=== PATIENT | female | born 1945 | race Caucasian/White ===

== ENCOUNTER → 2017-05-13 | Outpatient (CLI) | payer MEDICARE ==
[~2017-05-13] MED LIST: ALBU0.63 NEB; ALBU8.5H5 INH; ALPR0.254 PO; AMLO10TA2 PO; ASPI-621 PO; ATOR10TA PO; DABI150C PO; DRON400T PO; ESTR1TAB15 PO; FLUT1DIS3 INH; HYDR-3240 PO; LORA-445 PO; LORA10TA75 PO; LOSA100T6 PO; PRED10TA PO; SULF1TAB24 PO; TIOT18CA INH
== END | disposition home or self-care (01) ==
LOC: CFH 12:33
PROVIDERS: ATTEND Internal Medicine
DX: R05 Cough (principal)
CPT/HCPCS: 71046

== ENCOUNTER 2018-06-28 16:55 | Inpatient (IN) | payer MEDICARE ==
[~2018-06-28] VITALS: Ht 162.6 cm; Wt 74.0 kg
[~2018-06-28 16:55] MED LIST changes: -AMLO10TA2 PO; +AMLO10TA8 PO; -ASPI-621 PO; +ASPI81TA45 PO; +LOSA100T14 PO; -LOSA100T6 PO
[2018-06-28] MEDS ORDERED: methylPREDNISolone SOD SUCC 125 MG/2 ML ONE (17:26)
[2018-06-28] MEDS ORDERED: SODIUM CHLORIDE FLUSH 10ML SYR IVF ONE (17:30)
[2018-06-28] MEDS ORDERED: methylPREDNISolone SOD SUCC 125 MG/2 ML IVP ONE (17:30)
[2018-06-28 17:51] LABS: BASOPHILS # (AUTO) 0.03 x10^3/uL (0-0.1); BASOPHILS % (AUTO) 1 % (0-1); EOSINOPHILS # (AUTO) 0.13 x10^3/uL (0-0.4); EOSINOPHILS % (AUTO) 2 % (1-7); LYMPHOCYTES # (AUTO) 0.96 x10^3/uL (1-3.4); LYMPHOCYTES % (AUTO) 17 % (22-44); MD NO; MEAN CORPUSCULAR HEMOGLOBIN 31.4 pg (27.0-34.8); MEAN CORPUSCULAR HGB CONC 34.3 g/dL (32.4-35.8); MEAN CORPUSCULAR VOLUME 91.7 fL (80-100); MEAN PLATELET VOLUME 8.1 fL (7.4-10.4); MONOCYTES # (AUTO) 0.46 x10^3/uL (0.2-0.8); MONOCYTES % (AUTO) 8 % (2-9); NEUTROPHILS # (AUTO) 3.96 x10^3/uL (1.8-6.8); NEUTROPHILS % (AUTO) 71 % (42-75); PLATELET COUNT 233 x10^3/uL (130-400); RED BLOOD COUNT 3.94 x10^6/uL (3.82-5.3); RED CELL DISTRIBUTION WIDTH 13.5 % (9.6-15.2)
[2018-06-28] MEDS ORDERED: APIX5TAB PO (17:57)
[2018-06-28] MEDS ORDERED: LOSA1TAB25 PO (17:57)
[2018-06-28 18:02] LABS: ALBUMIN 3.3 g/dL (3.4-5.0); ANION GAP 9 mmol/L (5-15); CALCIUM 7.9 mg/dL (8.5-10.1); CHLORIDE 98 mmol/L (98-107); CREATININE 1.39 mg/dL (0.55-1.02)
--- NOTE | 2018-06-28 18:52 | NUR ---
REPORT OF PT FROM TORI CUNHA. ASSUMING CARE OF PT AT THIS TIME.
[2018-06-28] MEDS ORDERED: ALBUTEROL/IPRATROPIUM 2.5MG/0.5MG, 3 ML NPPB ONE (19:00)
[2018-06-28] MEDS: NS + 20MEQ KCL 1,000 ML IV SCH (19:09)
[2018-06-28] MEDS ORDERED: ALBUTEROL/IPRATROPIUM 2.5MG/0.5MG, 3 ML ONE (19:14)
[2018-06-28] MEDS ORDERED: NS + 20MEQ KCL 1,000 ML IV ONE (19:22)
--- NOTE | 2018-06-28 19:28 | NUR ---
REPORT OF PT TO TORI SUAREZ. ALL QUESTIONS ANSWERED
[2018-06-28] MEDS ORDERED: POLYETHYLENE GLYCOL 17 GM PACKET PO PRN (19:30)
[2018-06-28] MEDS ORDERED: ONDANSETRON ODT 4 MG PO PRN (19:30)
[2018-06-28] MEDS ORDERED: BISACODYL 10 MG SUPP PR PRN (19:30)
[2018-06-28] MEDS ORDERED: GUAIFENESIN/DM 200-20MG, 10ML UDC PO PRN (19:30)
[2018-06-28] MEDS ORDERED: SODIUM CHLORIDE FLUSH 10ML SYR IVF PRN (19:30)
--- NOTE | 2018-06-28 19:37 | NUR ---
IV FLUIDS INITIATED PER MAY. PT IS HEADED TO FLOOR VIA [facility] WITH CORRECTIONAL PROGRAM SPECIALIST AT THIS TIME. FAMILY AT [facility] DURING TRANSPORT.
[2018-06-28 20:21] VITALS: BP 152/76
[2018-06-28] MEDS: BUDESONIDE 0.5 MG/2 ML INHA HHN SCH (21:00)
[2018-06-28] MEDS ORDERED: ALBUTEROL SULFATE 2.5 MG/3 ML HHN SCH (21:00)
[2018-06-28] MEDS: ATORVASTATIN 10 MG TABLET PO SCH (21:19)
[2018-06-28] MEDS: APIXABAN 5 MG TABLET PO SCH (21:19)
[2018-06-28] MEDS: LORazepam 0.5MG TABLET PO PRN (21:19)
[2018-06-28] MEDS: DRONEDARONE 400MG TABLET PO SCH (21:20)
[2018-06-28] MEDS: methylPREDNISolone SOD SUCC 125 MG/2 ML IVPush SCH (23:36)
[2018-06-29 02:12] VITALS: BP 126/67
[2018-06-29] MEDS: ALBUTEROL/IPRATROPIUM 2.5MG/0.5MG, 3 ML NPPB SCH ×4 (03:00→20:09)
[2018-06-29] MEDS: methylPREDNISolone SOD SUCC 125 MG/2 ML IVPush SCH ×2 (05:58→12:05)
[2018-06-29] MEDS: NS + 20MEQ KCL 1,000 ML IV SCH ×2 (06:10→16:57)
[2018-06-29 06:39] LABS: ALBUMIN 3.1 g/dL (3.4-5.0); CHLORIDE 98 mmol/L (98-107)
[2018-06-29 06:46] LABS: ALANINE AMINOTRANSFERASE 22 U/L (12-78); ALKALINE PHOSPHATASE 60 U/L (45-117); ANION GAP 9 mmol/L (5-15); BILIRUBIN,TOTAL 0.3 mg/dL (0.2-1.0); CALCIUM 7.6 mg/dL (8.5-10.1); CREATININE 1.35 mg/dL (0.55-1.02); TOTAL PROTEIN 6.1 g/dL (6.4-8.2)
[2018-06-29 06:47] LABS: MEAN CORPUSCULAR HEMOGLOBIN 31.5 pg (27.0-34.8); MEAN CORPUSCULAR VOLUME 90.2 fL (80-100); MEAN PLATELET VOLUME 8.6 fL (7.4-10.4); PLATELET COUNT 226 x10^3/uL (130-400); RED CELL DISTRIBUTION WIDTH 13.5 % (9.6-15.2)
[2018-06-29 07:09] LABS: BASOPHILS % (AUTO) 0 % (0-1); EOSINOPHILS % (AUTO) 0 % (1-7); LYMPHOCYTES # (AUTO) 0.35 x10^3/uL (1-3.4); LYMPHOCYTES % (AUTO) 12 % (22-44); MD SCAN; MONOCYTES # (AUTO) 0.02 x10^3/uL (0.2-0.8); MONOCYTES % (AUTO) 1 % (2-9); NEUTROPHILS # (AUTO) 2.71 x10^3/uL (1.8-6.8); NEUTROPHILS % (AUTO) 88 % (42-75)
[2018-06-29 07:24] VITALS: BP 118/67
[2018-06-29] MEDS ORDERED: IPRATROPIUM 0.5 MG/2.5 ML INHA HHN SCH (09:00)
[2018-06-29] MEDS ORDERED: HYDROCHLOROTHIAZIDE 12.5 MG CAPSULE PO SCH (09:00)
[2018-06-29] MEDS: SENNA/DOCUSATE TABLET PO SCH (09:00)
[2018-06-29] MEDS: LOSARTAN 50MG TABLET PO SCH (09:28)
[2018-06-29] MEDS: ESTRADIOL 1 MG TABLET PO SCH (09:28)
[2018-06-29] MEDS: DRONEDARONE 400MG TABLET PO SCH ×2 (09:29→16:56)
[2018-06-29] MEDS: AMLODIPINE 10 MG TAB PO SCH (09:29)
[2018-06-29] MEDS: APIXABAN 5 MG TABLET PO SCH ×2 (09:29→21:12)
[2018-06-29] MEDS: LORazepam 0.5MG TABLET PO PRN ×2 (09:37→20:02)
[2018-06-29] MEDS: BUDESONIDE 0.5 MG/2 ML INHA HHN SCH ×2 (10:00→20:09)
[2018-06-29 13:01] VITALS: BP 112/61
[2018-06-29 14:55] LABS: HEMOGLOBIN A1C 5.7 % (4.2-6.3)
[2018-06-29 20:08] VITALS: BP 148/75
[2018-06-29] MEDS: DOXYCYCLINE 100MG TABLET PO SCH (21:11)
[2018-06-29] MEDS: ATORVASTATIN 10 MG TABLET PO SCH (21:12)
[2018-06-29] MEDS: GUAIFENESIN ER 600 MG TABLET PO SCH (21:12)
[2018-06-29] MEDS ORDERED: methylPREDNISolone SOD SUCC 125 MG/2 ML IVPush SCH (23:30)
[2018-06-30 01:30] VITALS: BP 114/65
[2018-06-30] MEDS: ALBUTEROL/IPRATROPIUM 2.5MG/0.5MG, 3 ML NPPB SCH ×4 (02:48→20:24)
[2018-06-30] MEDS: NS + 20MEQ KCL 1,000 ML IV SCH (05:50)
[2018-06-30 05:59] LABS: ANION GAP 7 mmol/L (5-15); CALCIUM 7.5 mg/dL (8.5-10.1); CHLORIDE 101 mmol/L (98-107); CREATININE 1.17 mg/dL (0.55-1.02)
[2018-06-30 06:21] LABS: MEAN CORPUSCULAR HEMOGLOBIN 31.5 pg (27.0-34.8); MEAN CORPUSCULAR HGB CONC 34.3 g/dL (32.4-35.8); MEAN CORPUSCULAR VOLUME 91.9 fL (80-100); MEAN PLATELET VOLUME 8.7 fL (7.4-10.4); PLATELET COUNT 211 x10^3/uL (130-400); RED BLOOD COUNT 3.57 x10^6/uL (3.82-5.3); RED CELL DISTRIBUTION WIDTH 13.4 % (9.6-15.2)
[2018-06-30 06:48] LABS: BASOPHILS % (AUTO) 0 % (0-1); EOSINOPHILS # (AUTO) 0.14 x10^3/uL (0-0.4); EOSINOPHILS % (AUTO) 2 % (1-7); LYMPHOCYTES # (AUTO) 0.26 x10^3/uL (1-3.4); LYMPHOCYTES % (AUTO) 4 % (22-44); MD SCAN; MONOCYTES # (AUTO) 0.13 x10^3/uL (0.2-0.8); MONOCYTES % (AUTO) 2 % (2-9); NEUTROPHILS # (AUTO) 6.57 x10^3/uL (1.8-6.8); NEUTROPHILS % (AUTO) 92 % (42-75)
[2018-06-30 07:32] VITALS: BP 123/70
[2018-06-30] MEDS: BUDESONIDE 0.5 MG/2 ML INHA HHN SCH ×2 (09:00→20:24)
[2018-06-30] MEDS: LORazepam 1MG TABLET PO PRN ×4 (09:03→21:06)
[2018-06-30] MEDS: SENNA/DOCUSATE TABLET PO SCH (09:04)
[2018-06-30] MEDS: AMLODIPINE 10 MG TAB PO SCH (09:04)
[2018-06-30] MEDS: LOSARTAN 50MG TABLET PO SCH (09:04)
[2018-06-30] MEDS: ESTRADIOL 1 MG TABLET PO SCH (09:04)
[2018-06-30] MEDS: DRONEDARONE 400MG TABLET PO SCH ×2 (09:04→17:09)
[2018-06-30] MEDS: GUAIFENESIN ER 600 MG TABLET PO SCH ×2 (09:05→21:06)
[2018-06-30] MEDS: APIXABAN 5 MG TABLET PO SCH ×2 (09:05→21:06)
[2018-06-30] MEDS: DOXYCYCLINE 100MG TABLET PO SCH ×2 (09:05→21:06)
[2018-06-30 12:49] VITALS: BP 133/74
[2018-06-30 19:10] VITALS: BP 115/67
[2018-06-30] MEDS: ATORVASTATIN 10 MG TABLET PO SCH (21:06)
[2018-06-30] MEDS ORDERED: SODIUM CHLORIDE NASAL SPRAY 45ML BOTTLE NAS PRN (22:00)
[2018-07-01 01:41] VITALS: BP 111/65
[2018-07-01] MEDS: ALBUTEROL/IPRATROPIUM 2.5MG/0.5MG, 3 ML NPPB SCH ×4 (02:30→19:44)
[2018-07-01 07:17] VITALS: BP 168/62
[2018-07-01] MEDS: BUDESONIDE 0.5 MG/2 ML INHA HHN SCH ×2 (08:15→19:44)
[2018-07-01] MEDS: SENNA/DOCUSATE TABLET PO SCH (09:00)
[2018-07-01] MEDS: GUAIFENESIN ER 600 MG TABLET PO SCH ×2 (09:15→20:59)
[2018-07-01] MEDS: APIXABAN 5 MG TABLET PO SCH ×2 (09:16→20:59)
[2018-07-01] MEDS: ESTRADIOL 1 MG TABLET PO SCH (09:16)
[2018-07-01] MEDS: AMLODIPINE 10 MG TAB PO SCH (09:16)
[2018-07-01] MEDS: DOXYCYCLINE 100MG TABLET PO SCH ×2 (09:16→20:59)
[2018-07-01] MEDS: LOSARTAN 50MG TABLET PO SCH (09:16)
[2018-07-01] MEDS: DRONEDARONE 400MG TABLET PO SCH ×2 (09:16→18:11)
[2018-07-01 14:59] VITALS: BP 117/67
[2018-07-01] MEDS: LORazepam 1MG TABLET PO PRN (18:19)
[2018-07-01 20:00] VITALS: BP 138/66
[2018-07-01] MEDS: ATORVASTATIN 10 MG TABLET PO SCH (20:59)
[2018-07-01] MEDS: ACETAMINOPHEN 325 MG TABLET PO PRN (21:10)
[2018-07-01] MEDS: HYDROcodone/APAP 5/325 TABLET PO PRN (22:39)
[2018-07-02 02:43] VITALS: BP 133/70
[2018-07-02] MEDS: ALBUTEROL/IPRATROPIUM 2.5MG/0.5MG, 3 ML NPPB SCH ×4 (03:00→22:00)
[2018-07-02 05:53] LABS: ANION GAP 7 mmol/L (5-15); CHLORIDE 99 mmol/L (98-107); CREATININE 1.17 mg/dL (0.55-1.02)
[2018-07-02] MEDS ORDERED: methylPREDNISolone SOD SUCC 125 MG/2 ML IVPush SCH (08:00)
[2018-07-02] MEDS: HYDROcodone/APAP 5/325 TABLET PO PRN ×2 (08:33→16:56)
[2018-07-02] MEDS: APIXABAN 5 MG TABLET PO SCH ×2 (08:33→20:19)
[2018-07-02] MEDS: SENNA/DOCUSATE TABLET PO SCH (08:33)
[2018-07-02] MEDS: DOXYCYCLINE 100MG TABLET PO SCH ×2 (08:33→20:20)
[2018-07-02] MEDS: GUAIFENESIN ER 600 MG TABLET PO SCH ×2 (08:34→20:19)
[2018-07-02] MEDS: DRONEDARONE 400MG TABLET PO SCH ×2 (08:34→16:56)
[2018-07-02] MEDS: ESTRADIOL 1 MG TABLET PO SCH (08:34)
[2018-07-02] MEDS: LOSARTAN 50MG TABLET PO SCH (08:37)
[2018-07-02] MEDS: AMLODIPINE 10 MG TAB PO SCH (08:37)
[2018-07-02 08:39] VITALS: BP 143/83
[2018-07-02] MEDS: BUDESONIDE 0.5 MG/2 ML INHA HHN SCH ×2 (09:00→21:00)
[2018-07-02] MEDS: LORazepam 1MG TABLET PO PRN ×2 (12:08→16:57)
[2018-07-02 14:24] VITALS: BP 116/61
[2018-07-02 18:45] VITALS: BP 98/56
[2018-07-02] MEDS: ATORVASTATIN 10 MG TABLET PO SCH (20:19)
[2018-07-03] MEDS: HYDROcodone/APAP 5/325 TABLET PO PRN ×4 (00:01→23:33)
[2018-07-03 00:25] LABS: MICROSCOPIC NOT IND
[2018-07-03 00:28] LABS: SODIUM,URINE RANDOM 10 mmol/L
[2018-07-03 00:51] LABS: OSMOLALITY,URINE 477 mOsm/kg (500-850)
[2018-07-03 02:32] VITALS: BP 152/86
[2018-07-03 06:24] LABS: ANION GAP 8 mmol/L (5-15); CALCIUM 7.8 mg/dL (8.5-10.1); CHLORIDE 95 mmol/L (98-107)
[2018-07-03 06:27] LABS: CREATININE 1.21 mg/dL (0.55-1.02)
[2018-07-03] MEDS ORDERED: SODIUM CHLORIDE 0.9%, 500ML IVBOLUS ONE (07:00)
[2018-07-03 07:30] VITALS: BP 146/85
[2018-07-03] MEDS: ALBUTEROL/IPRATROPIUM 2.5MG/0.5MG, 3 ML NPPB SCH ×6 (07:58→22:47)
[2018-07-03] MEDS: BUDESONIDE 0.5 MG/2 ML INHA HHN SCH ×2 (07:58→19:09)
[2018-07-03] MEDS: ESTRADIOL 1 MG TABLET PO SCH (08:11)
[2018-07-03] MEDS: GUAIFENESIN ER 600 MG TABLET PO SCH ×2 (08:11→21:02)
[2018-07-03] MEDS: APIXABAN 5 MG TABLET PO SCH ×2 (08:12→21:02)
[2018-07-03] MEDS: SENNA/DOCUSATE TABLET PO SCH (08:12)
[2018-07-03] MEDS: AMLODIPINE 10 MG TAB PO SCH (08:12)
[2018-07-03] MEDS: DRONEDARONE 400MG TABLET PO SCH ×2 (08:12→17:17)
[2018-07-03] MEDS: DOXYCYCLINE 100MG TABLET PO SCH ×2 (08:12→21:02)
[2018-07-03] MEDS: LORazepam 1MG TABLET PO PRN (10:52)
[2018-07-03 12:16] LABS: ALBUMIN 3.4 g/dL (3.4-5.0); ANION GAP 8 mmol/L (5-15); CALCIUM 8.2 mg/dL (8.5-10.1); CHLORIDE 98 mmol/L (98-107)
[2018-07-03] MEDS: ACETAMINOPHEN 325 MG TABLET PO PRN (13:12)
[2018-07-03 13:55] VITALS: BP 116/60
[2018-07-03] MEDS: SODIUM CHLORIDE 0.9% 1,000 ML IV SCH (17:17)
[2018-07-03 19:00] VITALS: BP 110/58
[2018-07-03] MEDS: ATORVASTATIN 10 MG TABLET PO SCH (21:02)
[2018-07-04 01:12] VITALS: BP 116/58
[2018-07-04] MEDS: SODIUM CHLORIDE 0.9% 1,000 ML IV SCH (04:59)
[2018-07-04 05:25] LABS: CHLORIDE 103 mmol/L (98-107)
[2018-07-04 05:26] LABS: BASOPHILS # (AUTO) 0.04 x10^3/uL (0-0.1); BASOPHILS % (AUTO) 0 % (0-1); EOSINOPHILS # (AUTO) 0.06 x10^3/uL (0-0.4); EOSINOPHILS % (AUTO) 1 % (1-7); LYMPHOCYTES # (AUTO) 2.53 x10^3/uL (1-3.4); LYMPHOCYTES % (AUTO) 21 % (22-44); MD NO; MEAN CORPUSCULAR HEMOGLOBIN 31.2 pg (27.0-34.8); MEAN CORPUSCULAR HGB CONC 33.8 g/dL (32.4-35.8); MEAN CORPUSCULAR VOLUME 92.2 fL (80-100); MEAN PLATELET VOLUME 8.2 fL (7.4-10.4); MONOCYTES # (AUTO) 1.01 x10^3/uL (0.2-0.8); MONOCYTES % (AUTO) 8 % (2-9); NEUTROPHILS # (AUTO) 8.63 x10^3/uL (1.8-6.8); NEUTROPHILS % (AUTO) 70 % (42-75); PLATELET COUNT 335 x10^3/uL (130-400); RED BLOOD COUNT 3.04 x10^6/uL (3.82-5.3); RED CELL DISTRIBUTION WIDTH 13.6 % (9.6-15.2)
[2018-07-04 05:31] LABS: ALANINE AMINOTRANSFERASE 25 U/L (12-78); ALBUMIN 3.2 g/dL (3.4-5.0); ALKALINE PHOSPHATASE 38 U/L (45-117); ANION GAP 7 mmol/L (5-15); BILIRUBIN,TOTAL 0.4 mg/dL (0.2-1.0); CALCIUM 7.8 mg/dL (8.5-10.1); CREATININE 1.04 mg/dL (0.55-1.02); TOTAL PROTEIN 5.4 g/dL (6.4-8.2)
[2018-07-04] MEDS: ALBUTEROL/IPRATROPIUM 2.5MG/0.5MG, 3 ML NPPB SCH ×4 (06:00→22:00)
[2018-07-04 06:22] VITALS: BP 127/54
[2018-07-04] MEDS: DRONEDARONE 400MG TABLET PO SCH ×2 (08:40→16:55)
[2018-07-04] MEDS: AMLODIPINE 10 MG TAB PO SCH (08:40)
[2018-07-04] MEDS: ESTRADIOL 1 MG TABLET PO SCH (08:40)
[2018-07-04] MEDS: APIXABAN 5 MG TABLET PO SCH (08:40)
[2018-07-04] MEDS: GUAIFENESIN ER 600 MG TABLET PO SCH ×2 (08:40→21:16)
[2018-07-04] MEDS: DOXYCYCLINE 100MG TABLET PO SCH ×2 (08:41→21:16)
[2018-07-04] MEDS: hydrOXyzine 10MG TABLET PO PRN ×3 (08:41→23:14)
[2018-07-04] MEDS: SENNA/DOCUSATE TABLET PO SCH (08:43)
[2018-07-04] MEDS: BUDESONIDE 0.5 MG/2 ML INHA HHN SCH ×2 (09:00→21:00)
[2018-07-04 14:00] VITALS: BP 109/62
[2018-07-04] MEDS ORDERED: OMNIPAQUE 350 MG/ML, 100ML BOTTLE ONE (14:11)
[2018-07-04 16:14] LABS: BASOPHILS % (AUTO) 0 % (0-1); EOSINOPHILS % (AUTO) 0 % (1-7); LYMPHOCYTES # (AUTO) 0.76 x10^3/uL (1-3.4); LYMPHOCYTES % (AUTO) 6 % (22-44); MD NO; MEAN CORPUSCULAR HEMOGLOBIN 30.4 pg (27.0-34.8); MEAN CORPUSCULAR HGB CONC 33.1 g/dL (32.4-35.8); MEAN CORPUSCULAR VOLUME 91.8 fL (80-100); MEAN PLATELET VOLUME 8.3 fL (7.4-10.4); MONOCYTES # (AUTO) 0.34 x10^3/uL (0.2-0.8); MONOCYTES % (AUTO) 3 % (2-9); NEUTROPHILS # (AUTO) 10.98 x10^3/uL (1.8-6.8); NEUTROPHILS % (AUTO) 91 % (42-75); PLATELET COUNT 356 x10^3/uL (130-400); RED BLOOD COUNT 3.07 x10^6/uL (3.82-5.3); RED CELL DISTRIBUTION WIDTH 13.7 % (9.6-15.2)
[2018-07-04] MEDS ORDERED: ANTI INHIBITOR COAGULANT COMP IVPB ONE (16:30)
[2018-07-04 17:13] VITALS: BP 138/69
[2018-07-04 20:00] VITALS: BP 154/77
[2018-07-04] MEDS: ATORVASTATIN 10 MG TABLET PO SCH (21:17)
[2018-07-05 03:05] VITALS: BP 127/71
[2018-07-05 05:30] LABS: BASOPHILS # (AUTO) 0.03 x10^3/uL (0-0.1); BASOPHILS % (AUTO) 0 % (0-1); EOSINOPHILS # (AUTO) 0.06 x10^3/uL (0-0.4); EOSINOPHILS % (AUTO) 1 % (1-7); LYMPHOCYTES # (AUTO) 2.55 x10^3/uL (1-3.4); LYMPHOCYTES % (AUTO) 21 % (22-44); MD NO; MEAN CORPUSCULAR HEMOGLOBIN 30.7 pg (27.0-34.8); MEAN CORPUSCULAR HGB CONC 33.6 g/dL (32.4-35.8); MEAN CORPUSCULAR VOLUME 91.5 fL (80-100); MEAN PLATELET VOLUME 8.5 fL (7.4-10.4); MONOCYTES # (AUTO) 0.98 x10^3/uL (0.2-0.8); MONOCYTES % (AUTO) 8 % (2-9); NEUTROPHILS # (AUTO) 8.78 x10^3/uL (1.8-6.8); NEUTROPHILS % (AUTO) 71 % (42-75); PLATELET COUNT 338 x10^3/uL (130-400); RED BLOOD COUNT 3.05 x10^6/uL (3.82-5.3); RED CELL DISTRIBUTION WIDTH 13.9 % (9.6-15.2)
[2018-07-05 05:38] LABS: ALBUMIN 3.1 g/dL (3.4-5.0); ANION GAP 8 mmol/L (5-15); CALCIUM 8.2 mg/dL (8.5-10.1); CHLORIDE 97 mmol/L (98-107)
[2018-07-05 05:44] LABS: ALANINE AMINOTRANSFERASE 27 U/L (12-78); ALKALINE PHOSPHATASE 42 U/L (45-117); BILIRUBIN,TOTAL 0.5 mg/dL (0.2-1.0); CREATININE 1.03 mg/dL (0.55-1.02); TOTAL PROTEIN 5.7 g/dL (6.4-8.2)
[2018-07-05] MEDS: ALBUTEROL/IPRATROPIUM 2.5MG/0.5MG, 3 ML NPPB SCH ×4 (06:00→21:00)
[2018-07-05] MEDS: BUDESONIDE 0.5 MG/2 ML INHA HHN SCH (09:00)
[2018-07-05] MEDS ORDERED: SODIUM CHLORIDE 0.9% 1,000 ML IV SCH (09:00)
[2018-07-05 09:10] VITALS: BP 117/59
[2018-07-05] MEDS: SENNA/DOCUSATE TABLET PO SCH (09:13)
[2018-07-05] MEDS: ESTRADIOL 1 MG TABLET PO SCH (09:13)
[2018-07-05] MEDS: AMLODIPINE 10 MG TAB PO SCH (09:13)
[2018-07-05] MEDS: hydrOXyzine 10MG TABLET PO PRN ×2 (09:14→17:24)
[2018-07-05] MEDS: DOXYCYCLINE 100MG TABLET PO SCH ×2 (09:14→20:48)
[2018-07-05] MEDS: DRONEDARONE 400MG TABLET PO SCH ×2 (09:14→17:11)
[2018-07-05] MEDS: GUAIFENESIN ER 600 MG TABLET PO SCH ×2 (09:15→20:48)
[2018-07-05] MEDS ORDERED: ALBUTEROL/IPRATROPIUM 2.5MG/0.5MG, 3 ML NPPB PRN (12:30)
[2018-07-05] MEDS: BENZONATATE 100 MG CAPSULE PO SCH ×3 (13:27→20:50)
[2018-07-05 14:18] VITALS: BP 130/71
[2018-07-05 14:54] VITALS: BP 124/57
[2018-07-05 15:26] LABS: ANION GAP 10 mmol/L (5-15); CALCIUM 7.7 mg/dL (8.5-10.1); CHLORIDE 98 mmol/L (98-107)
[2018-07-05 20:04] VITALS: BP 143/66
[2018-07-05] MEDS: ATORVASTATIN 10 MG TABLET PO SCH (20:48)
[2018-07-06] MEDS: hydrOXyzine 10MG TABLET PO PRN (01:05)
[2018-07-06 02:36] VITALS: BP 123/73
[2018-07-06 07:38] LABS: MEAN CORPUSCULAR HEMOGLOBIN 30.6 pg (27.0-34.8); MEAN CORPUSCULAR VOLUME 92.8 fL (80-100); MEAN PLATELET VOLUME 8.3 fL (7.4-10.4); PLATELET COUNT 362 x10^3/uL (130-400); RED BLOOD COUNT 2.94 x10^6/uL (3.82-5.3); RED CELL DISTRIBUTION WIDTH 14.2 % (9.6-15.2)
[2018-07-06] MEDS ORDERED: HYDR10TA4 PO (07:50)
[2018-07-06] MEDS ORDERED: GUAI600T31 PO (07:50)
[2018-07-06] MEDS ORDERED: BENZ-17 PO (07:50)
[2018-07-06] MEDS ORDERED: PRED10TA PO (07:50)
[2018-07-06 07:52] LABS: ALBUMIN 3.3 g/dL (3.4-5.0); ANION GAP 8 mmol/L (5-15); CALCIUM 7.9 mg/dL (8.5-10.1); CHLORIDE 100 mmol/L (98-107)
[2018-07-06 07:56] VITALS: BP 137/69
[2018-07-06 08:06] LABS: MD YES
[2018-07-06 08:13] LABS: LYMPH#(MANUAL) 3.34 x10^3/uL (1-3.4); LYMPHS% (MANUAL) 23 % (22-44); METAMYELOCYTES# (MANUAL) 0.15 x10^3/uL (0-0); METAMYELOCYTES% (MANUAL) 1 % (0-1); MONOS#(MANUAL) 1.31 x10^3/uL (0.3-2.7); MONOS% (MANUAL) 9 % (2-9); MYELOCYTES# (MANUAL) 0.15 x10^3/uL (0-0); MYELOCYTES% (MANUAL) 1 % (0-0); SEG#(MANUAL) 9.57 x10^3/uL (1.8-6.8); SEGS% (MANUAL) 66 % (42-75)
[2018-07-06 08:17] LABS: <PLATELET ESTIMATE> ADEQUATE
[2018-07-06 08:18] LABS: ANISOCYTOSIS 1+
[2018-07-06] MEDS: ESTRADIOL 1 MG TABLET PO SCH (08:45)
[2018-07-06] MEDS: DRONEDARONE 400MG TABLET PO SCH (08:45)
[2018-07-06] MEDS: GUAIFENESIN ER 600 MG TABLET PO SCH (08:46)
[2018-07-06] MEDS: AMLODIPINE 10 MG TAB PO SCH (08:46)
[2018-07-06] MEDS: SENNA/DOCUSATE TABLET PO SCH (08:46)
[2018-07-06] MEDS: DOXYCYCLINE 100MG TABLET PO SCH (08:46)
[2018-07-06] MEDS: BENZONATATE 100 MG CAPSULE PO SCH (08:47)
[2018-07-06] MEDS: ALBUTEROL/IPRATROPIUM 2.5MG/0.5MG, 3 ML NPPB SCH (09:00)
[2018-07-06] MEDS ORDERED: ALBUTEROL/IPRATROPIUM 2.5MG/0.5MG, 3 ML NPPB PRN (11:00)
[2018-07-06 11:14] VITALS: BP 138/69
[2018-07-06 13:17] VITALS: BP 130/69
== END 2018-07-06 14:50 | disposition home or self-care (01) | DRG 682 ==
LOC: ED 17:52 → EDIP 19:09 → 3NE 20:05 → 5SO 07-04 17:06 → 4NOR 07-05 14:48 → DCLOUNGE 07-06 13:17
PROVIDERS: ADMIT Family Medicine; ATTEND Family Medicine
DX: N17.0 Acute kidney failure with tubular necrosis (principal); J96.21 Acute and chronic respiratory failure with hypoxia; I50.33 Acute on chronic diastolic (congestive) heart failure; J44.1 Chronic obstructive pulmonary disease with (acute) exacerbation; E87.1 Hypo-osmolality and hyponatremia; D62 Acute posthemorrhagic anemia; D68.69 Other thrombophilia; E44.0 Moderate protein-calorie malnutrition; I77.4 Celiac artery compression syndrome; I11.0 Hypertensive heart disease with heart failure; Z96.1 Presence of intraocular lens; R58 Hemorrhage, not elsewhere classified; R73.9 Hyperglycemia, unspecified; E78.5 Hyperlipidemia, unspecified; E87.6 Hypokalemia; F41.0 Panic disorder [episodic paroxysmal anxiety]; I48.0 Paroxysmal atrial fibrillation; I48.2 Chronic atrial fibrillation; T38.0X5A Adverse effect of glucocorticoids and synthetic analogues, initial encounter; Z68.28 Body mass index [BMI] 28.0-28.9, adult; Z98.49 Cataract extraction status, unspecified eye; Y92.89 Other specified places as the place of occurrence of the external cause; Z79.01 Long term (current) use of anticoagulants; Z79.890 Hormone replacement therapy; Z79.899 Other long term (current) drug therapy; Z86.73 Personal history of transient ischemic attack (TIA), and cerebral infarction without residual deficits; Z87.891 Personal history of nicotine dependence; Z90.710 Acquired absence of both cervix and uterus; Z90.89 Acquired absence of other organs
CPT/HCPCS: 36415; 71045; 74177; 80048; 80053; 81003; 82040; 83036; 83930; 83935; 84300; 84550; 85014; 85018; 85025; 85379; 93005; 94640; 99285; G0378; J3480; J7198; J7620; J7626; Q9967; J2930; J7030; J7040; J7512

== ENCOUNTER 2018-07-09 17:37 | Inpatient (IN) | payer MEDICARE ==
[~2018-07-09] VITALS: Ht 162.6 cm; Wt 77.0 kg
[~2018-07-09 17:37] MED LIST changes: +APIX5TAB PO; +BENZ-17 PO; +GUAI600T31 PO; +HYDR10TA4 PO; +LOSA1TAB25 PO
--- NOTE | 2018-07-09 17:45 | NUR ---
PT BROUGHT IN BY BRENT FROM HOME. PT WAS D/C'ED A WEEK AGO FROM ABD BLEED. SON CALLED EMS, STATED PT HAS NOT BEEN "ACTING RIGHT," NOT SLEEPING, DRINKING, EATING SINCE PT HAS BEEN D/C'ED. PT APPEARS ANXIOUS AND STATED SHE IS "REGRESSING/GOING BACKWARDS." PER BRENT, PT IS BOUNCY WITH HER STORY. VS: 186/83, 99% O2 4L NC, SR ON MONITOR, BS 160. PT HAS HISTORY OF COPD WITH BASELINE OF O2 4L NC, INCREASED CHOLESTEROL, STROKE 5 YEARS AGO. SON GISELA WANTS TO BE CALLED WITH ANY UPDATES: [phone]
[2018-07-09] MEDS ORDERED: SODIUM CHLORIDE FLUSH 10ML SYR IVF ONE (18:30)
--- NOTE | 2018-07-09 18:35 | NUR ---
PT STATING THAT SHE DOESN'T WANT TO AMBULATE TO THE BR BECAUSE, "I'M REGRESSING, AND NO ONE'S PAYING ATTENTION TO ME!"
--- NOTE | 2018-07-09 18:43 | NUR ---
PT REFUSED CT EXAM. ERP NOTIFIED. WILL CALL PT'S SON TO GET MORE INFO ON PT'S BASELINE MENTAL STATUS.
[2018-07-09 18:49] LABS: INTERNATIONAL NORMALIZED RATIO 1.03 (0.93-1.1); PROTHROMBIN TIME 10.8 Seconds (9.6-11.5)
[2018-07-09 18:52] LABS: ALBUMIN 3.7 g/dL (3.4-5.0); ANION GAP 10 mmol/L (5-15); CALCIUM 8.4 mg/dL (8.5-10.1); CHLORIDE 98 mmol/L (98-107)
[2018-07-09 18:56] LABS: ALANINE AMINOTRANSFERASE 26 U/L (12-78); ALKALINE PHOSPHATASE 59 U/L (45-117); BILIRUBIN,TOTAL 1.2 mg/dL (0.2-1.0); CREATININE 1.08 mg/dL (0.55-1.02); TOTAL PROTEIN 6.4 g/dL (6.4-8.2)
[2018-07-09 18:58] LABS: ACETAMINOPHEN < 2 mcg/mL (10-30); SALICYLATE LEVEL < 1.7 mg/dL (2.8-20.0)
--- NOTE | 2018-07-09 18:59 | NUR ---
SPOKE WITH PT'S SON GISELA ON THE PHONE. HE STATES THAT PT HASN'T SLEPT WELL FOR 1 WEEK AND HAS BEEN HALLUCINATING FOR ABOUT 2-3 DAYS, SAYING THINGS LIKE, "MY MIND IS HERE BUT MY FACE IS HERE (POINTING TO CHEST)" AND "I'M IN HELL" AND TALKING TO "GHOSTS". PT WAS TAKEN OFF OF HER BLOOD THINNER DURING HER HOSPITALIZATION FOR ABD BLEED. PER SON, PT'S BASELINE MENTAL STATUS IS OX4, NO CONFUSION OR HALLUCINATIONS. REPORTED TO KENJI VALLE. Addendum: 07/09/18 at 1903 by JAMIE UPDATED ERP ON INFO FROM PT'S SON.
[2018-07-09 19:00] LABS: BASOPHILS % (AUTO) 0 % (0-1); EOSINOPHILS # (AUTO) 0.17 x10^3/uL (0-0.4); EOSINOPHILS % (AUTO) 1 % (1-7); LYMPHOCYTES # (AUTO) 0.64 x10^3/uL (1-3.4); LYMPHOCYTES % (AUTO) 3 % (22-44); MD NO; MEAN CORPUSCULAR HEMOGLOBIN 31.4 pg (27.0-34.8); MEAN CORPUSCULAR HGB CONC 33.8 g/dL (32.4-35.8); MEAN CORPUSCULAR VOLUME 92.8 fL (80-100); MEAN PLATELET VOLUME 8.4 fL (7.4-10.4); MONOCYTES # (AUTO) 0.27 x10^3/uL (0.2-0.8); MONOCYTES % (AUTO) 1 % (2-9); NEUTROPHILS # (AUTO) 18.38 x10^3/uL (1.8-6.8); NEUTROPHILS % (AUTO) 94 % (42-75); PLATELET COUNT 410 x10^3/uL (130-400); RED BLOOD COUNT 3.53 x10^6/uL (3.82-5.3); RED CELL DISTRIBUTION WIDTH 14.5 % (9.6-15.2)
[2018-07-09] MEDS ORDERED: LORazepam 2 MG/ML, 1ML IVPush ONE ×2 (19:00)
[2018-07-09] MEDS ORDERED: LORazepam 2 MG/ML, 1ML ONE (19:06)
--- NOTE | 2018-07-09 19:12 | NUR ---
PT RESTING ON GURNEY,A&O X3, REORIENTED PT TO EVENT, PT MEIDCATED PER MAY, MONITORS IN PLACE, CALL LIGHT WITHIN REACH. PT REFUSING NEED TO URINATE AT THIS TIME.
--- NOTE | 2018-07-09 20:01 | NUR ---
PT ASSISTED UP TO BSC, MONITORS IN PLACE, CALL LIGHT WITHIN REACH. URINE SAMPLE TAKEN TO LAB, CT CALLED AND NOTIFIED PT AGREES TO HAVE SCAN.
--- NOTE | 2018-07-09 20:06 | NUR ---
PT TO CT
[2018-07-09 20:20] LABS: MICROSCOPIC NOT IND
[2018-07-09 20:25] LABS: CULTURE INDICATED? NO
--- NOTE | 2018-07-09 20:35 | NUR ---
STATION WORKER AT PT'S BEDSIDE
--- NOTE | 2018-07-09 20:41 | NUR ---
PT 'S SON AT BEDSIDE, DISCUSSED POC, DENIES FURTHER NEEDS, AWAITING CT, XRAY AND LAB RESULTS
[2018-07-09 21:00] LABS: AMPHETAMINE SCREEN, URINE Negative (Negative); BARBITURATE SCREEN, URINE Negative (Negative); BENZODIAZEPINE SCREEN, URINE Negative (Negative); CANNABINOID SCREEN, URINE Negative (Negative); COCAINE SCREEN, URINE Negative (Negative); METHADONE SCREEN, URINE Negative (Negative); OPIATE SCREEN, URINE Negative (Negative)
--- NOTE | 2018-07-09 21:54 | NUR ---
PT RESTING ON GURNEY, MONITORS IN PLACE, FAMILY AT BEDSIDE, CALL LIGHT WITHIN REACH. AWAITING ROOM FOR TRASFER
[2018-07-09] MEDS ORDERED: DIPHENHYDRAMINE 25 MG CAPSULE ONE (22:01)
--- NOTE | 2018-07-09 22:01 | NUR ---
REPORT TO MATT VALLE FOR ROOM 485
[2018-07-09] MEDS ORDERED: ONDANSETRON ODT 4 MG PO PRN (22:30)
[2018-07-09 22:32] VITALS: BP 133/75
[2018-07-09] MEDS ORDERED: hydrOXyzine 10MG TABLET PO PRN (23:00)
[2018-07-09] MEDS ORDERED: HYDROcodone/APAP 5/325 TABLET PO PRN (23:00)
[2018-07-10 01:21] VITALS: BP 135/69
[2018-07-10] MEDS: ALBUTEROL/IPRATROPIUM 2.5MG/0.5MG, 3 ML NPPB PRN (05:18)
[2018-07-10 06:13] LABS: BASOPHILS # (AUTO) 0.08 x10^3/uL (0-0.1); BASOPHILS % (AUTO) 1 % (0-1); EOSINOPHILS # (AUTO) 0.02 x10^3/uL (0-0.4); EOSINOPHILS % (AUTO) 0 % (1-7); LYMPHOCYTES # (AUTO) 2.66 x10^3/uL (1-3.4); LYMPHOCYTES % (AUTO) 15 % (22-44); MD NO; MEAN CORPUSCULAR HEMOGLOBIN 31.2 pg (27.0-34.8); MEAN CORPUSCULAR HGB CONC 33.7 g/dL (32.4-35.8); MEAN CORPUSCULAR VOLUME 92.5 fL (80-100); MEAN PLATELET VOLUME 8.1 fL (7.4-10.4); MONOCYTES # (AUTO) 1.24 x10^3/uL (0.2-0.8); MONOCYTES % (AUTO) 7 % (2-9); NEUTROPHILS # (AUTO) 13.59 x10^3/uL (1.8-6.8); NEUTROPHILS % (AUTO) 77 % (42-75); PLATELET COUNT 349 x10^3/uL (130-400); RED BLOOD COUNT 3.14 x10^6/uL (3.82-5.3); RED CELL DISTRIBUTION WIDTH 14.2 % (9.6-15.2)
[2018-07-10 06:26] LABS: ANION GAP 9 mmol/L (5-15); CALCIUM 8.5 mg/dL (8.5-10.1); CHLORIDE 102 mmol/L (98-107); CREATININE 1.19 mg/dL (0.55-1.02)
[2018-07-10 08:00] VITALS: BP 155/72
[2018-07-10] MEDS: AMLODIPINE 10 MG TAB PO SCH (09:55)
[2018-07-10] MEDS: GUAIFENESIN ER 600 MG TABLET PO SCH ×2 (09:56→21:34)
[2018-07-10] MEDS: DRONEDARONE 400MG TABLET PO SCH ×2 (09:56→16:45)
[2018-07-10] MEDS: BENZONATATE 100 MG CAPSULE PO SCH ×3 (09:56→21:34)
[2018-07-10] MEDS ORDERED: POTASSIUM CHLORIDE 20 MEQ TAB.ER.PRT PO ONE (12:30)
[2018-07-10] MEDS: LORazepam 0.5MG TABLET PO SCH (13:23)
[2018-07-10] MEDS: SODIUM CHLORIDE 0.9% 1,000 ML IV SCH ×2 (13:23→20:30)
[2018-07-10 14:00] VITALS: BP 127/71
[2018-07-10 19:35] VITALS: BP 135/64
[2018-07-10] MEDS: ATORVASTATIN 10 MG TABLET PO SCH (21:34)
[2018-07-11] MEDS: LORazepam 0.5MG TABLET PO SCH ×3 (01:19→21:28)
[2018-07-11 01:24] VITALS: BP 160/80
[2018-07-11 04:15] LABS: BASOPHILS # (AUTO) 0.01 x10^3/uL (0-0.1); BASOPHILS % (AUTO) 0 % (0-1); EOSINOPHILS # (AUTO) 0.01 x10^3/uL (0-0.4); EOSINOPHILS % (AUTO) 0 % (1-7); LYMPHOCYTES # (AUTO) 1.66 x10^3/uL (1-3.4); LYMPHOCYTES % (AUTO) 10 % (22-44); MD NO; MEAN CORPUSCULAR HEMOGLOBIN 31.5 pg (27.0-34.8); MEAN CORPUSCULAR VOLUME 92.5 fL (80-100); MEAN PLATELET VOLUME 7.8 fL (7.4-10.4); MONOCYTES # (AUTO) 0.87 x10^3/uL (0.2-0.8); MONOCYTES % (AUTO) 5 % (2-9); NEUTROPHILS # (AUTO) 14.24 x10^3/uL (1.8-6.8); NEUTROPHILS % (AUTO) 85 % (42-75); PLATELET COUNT 296 x10^3/uL (130-400); RED BLOOD COUNT 2.96 x10^6/uL (3.82-5.3); RED CELL DISTRIBUTION WIDTH 14.4 % (9.6-15.2)
[2018-07-11 04:24] LABS: ALBUMIN 2.8 g/dL (3.4-5.0); ANION GAP 5 mmol/L (5-15); CALCIUM 7.7 mg/dL (8.5-10.1); CHLORIDE 105 mmol/L (98-107)
[2018-07-11 04:28] LABS: ALANINE AMINOTRANSFERASE 18 U/L (12-78); ALKALINE PHOSPHATASE 41 U/L (45-117); CREATININE 0.88 mg/dL (0.55-1.02)
[2018-07-11] MEDS ORDERED: POTASSIUM CHLORIDE 20 MEQ TAB.ER.PRT PO ONE (07:00)
[2018-07-11] MEDS: SODIUM CHLORIDE 0.9% 1,000 ML IV SCH (08:20)
[2018-07-11 09:00] VITALS: BP 128/69
[2018-07-11] MEDS: DRONEDARONE 400MG TABLET PO SCH ×2 (09:04→17:39)
[2018-07-11] MEDS: AMLODIPINE 10 MG TAB PO SCH (09:05)
[2018-07-11] MEDS: GUAIFENESIN ER 600 MG TABLET PO SCH ×2 (09:05→21:28)
[2018-07-11] MEDS: BENZONATATE 100 MG CAPSULE PO SCH ×3 (09:07→21:28)
[2018-07-11] MEDS: ALBUTEROL/IPRATROPIUM 2.5MG/0.5MG, 3 ML NPPB PRN (09:20)
[2018-07-11 12:56] VITALS: BP 101/60
[2018-07-11 19:10] VITALS: BP 116/68
[2018-07-11] MEDS: ALBUTEROL/IPRATROPIUM 2.5MG/0.5MG, 3 ML HHN SCH (20:52)
[2018-07-11] MEDS: ATORVASTATIN 10 MG TABLET PO SCH (21:28)
[2018-07-12 00:06] VITALS: BP 138/71
[2018-07-12 04:41] LABS: BASOPHILS # (AUTO) 0.06 x10^3/uL (0-0.1); BASOPHILS % (AUTO) 0 % (0-1); EOSINOPHILS # (AUTO) 0.01 x10^3/uL (0-0.4); EOSINOPHILS % (AUTO) 0 % (1-7); LYMPHOCYTES # (AUTO) 1.25 x10^3/uL (1-3.4); LYMPHOCYTES % (AUTO) 8 % (22-44); MD NO; MEAN CORPUSCULAR HEMOGLOBIN 30.4 pg (27.0-34.8); MEAN CORPUSCULAR HGB CONC 32.8 g/dL (32.4-35.8); MEAN CORPUSCULAR VOLUME 92.9 fL (80-100); MEAN PLATELET VOLUME 7.9 fL (7.4-10.4); MONOCYTES # (AUTO) 0.56 x10^3/uL (0.2-0.8); MONOCYTES % (AUTO) 4 % (2-9); NEUTROPHILS # (AUTO) 13.62 x10^3/uL (1.8-6.8); NEUTROPHILS % (AUTO) 88 % (42-75); PLATELET COUNT 279 x10^3/uL (130-400); RED BLOOD COUNT 2.88 x10^6/uL (3.82-5.3); RED CELL DISTRIBUTION WIDTH 14.6 % (9.6-15.2)
[2018-07-12 04:48] LABS: ALBUMIN 2.9 g/dL (3.4-5.0); ANION GAP 5 mmol/L (5-15); CALCIUM 7.8 mg/dL (8.5-10.1); CHLORIDE 104 mmol/L (98-107)
[2018-07-12 06:33] VITALS: BP 125/70
[2018-07-12] MEDS: GUAIFENESIN ER 600 MG TABLET PO SCH (08:34)
[2018-07-12] MEDS: DRONEDARONE 400MG TABLET PO SCH (08:34)
[2018-07-12] MEDS: AMLODIPINE 10 MG TAB PO SCH (08:34)
[2018-07-12] MEDS: LORazepam 0.5MG TABLET PO SCH (08:34)
[2018-07-12] MEDS: BENZONATATE 100 MG CAPSULE PO SCH (08:34)
[2018-07-12] MEDS ORDERED: LORA-445 PO (08:35)
[2018-07-12] MEDS ORDERED: POLYETHYLENE GLYCOL 17 GM PACKET PO SCH (09:00)
[2018-07-12] MEDS: ALBUTEROL/IPRATROPIUM 2.5MG/0.5MG, 3 ML HHN SCH (10:36)
[2018-07-12 13:11] VITALS: BP 113/65
== END 2018-07-12 14:30 | disposition home or self-care (01) | DRG 682 ==
LOC: ED 18:31 → EDIP 21:33 → 4EST 22:17 → 3NW 23:33
PROVIDERS: ADMIT Internal Medicine; ATTEND Internal Medicine
PROC: 0T9B70Z Drainage of Bladder with Drainage Device, Via Natural or Artificial Opening (ICD-10-PCS; principal; 2018-07-09)
DX: N17.9 Acute kidney failure, unspecified (principal); G92 Toxic encephalopathy; D68.69 Other thrombophilia; I50.32 Chronic diastolic (congestive) heart failure; J44.1 Chronic obstructive pulmonary disease with (acute) exacerbation; R47.01 Aphasia; D72.829 Elevated white blood cell count, unspecified; E78.5 Hyperlipidemia, unspecified; F22 Delusional disorders; F41.1 Generalized anxiety disorder; F51.04 Psychophysiologic insomnia; I11.0 Hypertensive heart disease with heart failure; I48.0 Paroxysmal atrial fibrillation; Z72.0 Tobacco use; Z79.890 Hormone replacement therapy; Z79.899 Other long term (current) drug therapy; Z86.73 Personal history of transient ischemic attack (TIA), and cerebral infarction without residual deficits; Z90.710 Acquired absence of both cervix and uterus
CPT/HCPCS: 36415; 70450; 71045; 80048; 80053; 80307; 80329; 81003; 82040; 82140; 82607; 84443; 85025; 85610; 85730; 87040; 94640; G0378; J7620; G0480; J2060; J7030; J7512

== ENCOUNTER → 2018-09-04 | Outpatient (CLI) | payer MEDICARE ==
[~2018-09-04] MED LIST changes: +OMNIPAQUE 350 MG/ML, 100ML BOTTLE ONE
== END | disposition home or self-care (01) ==
LOC: CFH 11:14
PROVIDERS: ATTEND Registered Nurse
DX: I08.3 Combined rheumatic disorders of mitral, aortic and tricuspid valves (principal); M79.81 Nontraumatic hematoma of soft tissue; I11.9 Hypertensive heart disease without heart failure; I25.2 Old myocardial infarction; I70.0 Atherosclerosis of aorta; J43.9 Emphysema, unspecified; K76.0 Fatty (change of) liver, not elsewhere classified; N28.1 Cyst of kidney, acquired; K42.9 Umbilical hernia without obstruction or gangrene; R93.89 Abnormal findings on diagnostic imaging of other specified body structures; E78.5 Hyperlipidemia, unspecified; I48.91 Unspecified atrial fibrillation; N94.89 Other specified conditions associated with female genital organs and menstrual cycle; Z90.710 Acquired absence of both cervix and uterus; Z87.891 Personal history of nicotine dependence; Z86.73 Personal history of transient ischemic attack (TIA), and cerebral infarction without residual deficits
CPT/HCPCS: 0399T; 74177; 93306; Q9967

== ENCOUNTER 2019-10-22 00:05 | Emergency (ER) | payer MEDICARE ==
[~2019-10-22] VITALS: Ht 162.6 cm; Wt 60.0 kg
[~2019-10-22 00:05] MED LIST changes: +HYDR-2995 PO; -HYDR10TA4 PO; -OMNIPAQUE 350 MG/ML, 100ML BOTTLE ONE
--- NOTE | 2019-10-22 00:15 | NUR ---
PT CAME IN CO OF HIGH BP. PT STATES SHE HAS MILD CHEST DISCOMFORT BUT THINKS SHE IS HAVING A PANIC ATTACK. PT HAS NO OTHER PHYSICAL COMPLAINTS. PT IS RESTING IN GURNEY. CONNECTED TO MONITORING EQUIPMENT.
[2019-10-22] MEDS ORDERED: hydrALAzine 20 MG/ML, 1ML IV ONE (00:30)
[2019-10-22] MEDS ORDERED: hydrALAzine 20 MG/ML, 1ML ONE (00:35)
[2019-10-22] MEDS ORDERED: LORazepam 2 MG/ML, 1ML ONE (00:53)
[2019-10-22 00:59] LABS: BASOPHILS # (AUTO) 0.01 x10^3/uL (0-0.1); BASOPHILS % (AUTO) 0 % (0-1); EOSINOPHILS # (AUTO) 0.02 x10^3/uL (0-0.4); EOSINOPHILS % (AUTO) 0 % (1-7); LYMPHOCYTES # (AUTO) 0.36 x10^3/uL (1-3.4); LYMPHOCYTES % (AUTO) 6 % (22-44); MD NO; MEAN CORPUSCULAR HEMOGLOBIN 30.2 pg (27.0-34.8); MEAN CORPUSCULAR VOLUME 91.5 fL (80-100); MEAN PLATELET VOLUME 8.7 fL (7.4-10.4); MONOCYTES # (AUTO) 0.03 x10^3/uL (0.2-0.8); MONOCYTES % (AUTO) 0 % (2-9); NEUTROPHILS # (AUTO) 5.97 x10^3/uL (1.8-6.8); NEUTROPHILS % (AUTO) 94 % (42-75); PLATELET COUNT 208 x10^3/uL (130-400); RED BLOOD COUNT 4.34 x10^6/uL (3.82-5.3); RED CELL DISTRIBUTION WIDTH 14.6 % (9.6-15.2)
[2019-10-22] MEDS ORDERED: LORazepam 2 MG/ML, 1ML IVPush ONE (01:00)
--- NOTE | 2019-10-22 01:00 | NUR ---
PT HAVING PANIC ATTACK. NOTIFIED. PT REFUSED ATIVAN. MED WASTED WITH TORI CONNELLY
--- NOTE | 2019-10-22 01:02 | NUR ---
UABLE TO PREFORM EKG AT THIS TIME PT STATES SHES HAVING A PANIC ATTACK, TORI ODOM NOTIFIED.
[2019-10-22 01:04] LABS: ALBUMIN 3.8 g/dL (3.4-5.0); ANION GAP 8 mmol/L (5-15); CALCIUM 8.1 mg/dL (8.5-10.1); CHLORIDE 100 mmol/L (98-107); CREATININE 1.92 mg/dL (0.55-1.02)
[2019-10-22 01:07] LABS: TROPONIN I < 0.015 ng/mL (0.000-0.045)
[2019-10-22] MEDS ORDERED: LORazepam 1MG TABLET ONE (01:20)
--- NOTE | 2019-10-22 01:23 | NUR ---
PT REMOVED IV. STILL HAVING A PANIC ATTACK. DECIDED THAT SHE WANTED TO TRY ATIVAN. GIVEN 1MG PO ATIVAN PER VERBAL ORDER FROM
--- NOTE | 2019-10-22 01:25 | NUR ---
REPORT FROM LEI VALLE. PT RESTING IN ROOM. WILL REVITAL AFTER MEDICATION HAS HAD TIME TO WORK.
--- NOTE | 2019-10-22 01:29 | NUR ---
PT REFUSING CARDIAC MONITORING AND PT REMOVED BP CUFF. WILL ATTEMPT BP AT A LATER TIME
[2019-10-22] MEDS ORDERED: LORazepam 1MG TABLET PO ONE (01:30)
--- NOTE | 2019-10-22 02:09 | NUR ---
PT FILI. WILL RECHECK BP IN 10 MIN
[2019-10-22] MEDS ORDERED: ALBUTEROL 0.5%, 20ML ONE (02:19)
[2019-10-22] MEDS ORDERED: ALBUTEROL 0.5%, 20ML NPPB SCH (02:30)
--- NOTE | 2019-10-22 02:30 | NUR ---
PT MEDICATED. BREATHING TREATMENT STARTED. BP IMPROVED. PT HAS NO OTHER NEEDS AT THIS TIME
--- NOTE | 2019-10-22 03:11 | NUR ---
REPORT RECEIVED FROM MARICEL VALLE. PT RESTING ON [employer] W/ CALL LIGHT IN REACH AND SIDE RAILS UPX2.
[2019-10-22 03:41] VITALS: BP 119/70
--- NOTE | 2019-10-22 04:13 | NUR ---
PT VERBALIZED UNDERSTANDING OF [facility]. STATES HER SPOUSE IS ON THE WAY TO PICK HER UP AND WILL BE HERE IN APPROX 30 MINUTES W/ OXYGEN TANK. PT WISHES TO WAIT IN ROOM TIL SPOUSE ARRIVES.
== END 2019-10-22 05:06 | disposition home or self-care (01) ==
LOC: ED 03:14
DX: J44.1 Chronic obstructive pulmonary disease with (acute) exacerbation (principal); F41.1 Generalized anxiety disorder; R07.89 Other chest pain; I44.4 Left anterior fascicular block; I10 Essential (primary) hypertension; I25.2 Old myocardial infarction; I48.91 Unspecified atrial fibrillation; Z86.718 Personal history of other venous thrombosis and embolism; Z86.73 Personal history of transient ischemic attack (TIA), and cerebral infarction without residual deficits; Z90.710 Acquired absence of both cervix and uterus; Z87.891 Personal history of nicotine dependence
CPT/HCPCS: 36415; 71045; 80048; 82040; 84484; 85025; 93005; 94640; 96374; 99285; J0360; J7512

== ENCOUNTER 2019-11-14 16:27 | Inpatient (IN) | payer MEDICARE ==
[~2019-11-14] VITALS: Ht 162.6 cm; Wt 62.5 kg
--- NOTE | 2019-11-14 16:29 | NUR ---
TELEGRAPH LINEMAN NEURO PAGED @[phone].
--- NOTE | 2019-11-14 16:50 | NUR ---
PT BACK FROM CT, MD FELIX IN ROOM ON COMPUTER
--- NOTE | 2019-11-14 16:50 | NUR ---
PT WOKE UP FROM A NAP AT 1530 WITH DIFFICULTY SPEAKING. PT WENT TO CT AT 1627. MD FELIX IN ROOM ON COMPUTER. EMS REPORTS BS 112. [facility]HELLE FAMILY'S NUMBER ( [phone]). HX CVA, COPD, ANXIETY, HYPERTENTION.
[2019-11-14] MEDS ORDERED: OMNIPAQUE 350 MG/ML, 75ML BOTTLE ONE (16:54)
[2019-11-14] MEDS ORDERED: ALTEPLASE IV ONE (17:00)
[2019-11-14] MEDS ORDERED: ALTEPLASE 6 MG in SYRINGE 1 EA IVPush ONE (17:00)
--- NOTE | 2019-11-14 17:02 | NUR ---
1702 6 ML OF TPA GIVEN PER MD FELIX. TPA 55 ML PER HR STARTED AT 1706
--- NOTE | 2019-11-14 17:08 | NUR ---
Assited Refugio VALLE and Sera (neuro RN) with starting TPA. The calculation for intial bolus and drip was checked 3 times and had verbal understanding by 3 rns who did independant checks and own math. Pts given 6mg bolus=10% and 61mg drip started. The wast was removed from the bottle and calculated accordingly. drip is running and gross neuor checks q15m started. At this time there is no signs or symptoms of hemmorhagic conversion. Pt unable to read words on puzzle or describe NIH pictures. Pt tearful but support provided. Addendum: 11/14/19 at 1739 by THERESA Assited Refugio VALLE and Sera (neuro RN) with starting TPA. The calculation for intial bolus and drip was checked 3 times and had verbal understanding by 3 rns who did independant checks and own math. Pts given 6mg bolus=10% and 58mg drip started Corrected statement was not started at 61mg. The wast was removed from the bottle and calculated accordingly. drip is running and gross neuor checks q15m started. At this time there is no signs or symptoms of hemmorhagic conversion. Pt unable to read words on puzzle or describe NIH pictures. Pt tearful but support provided. Addendum: 11/14/19 at 1741 by THERESA Assited Refugio VALLE and Sera (neuro RN) with starting TPA. The calculation for intial bolus and drip was checked 3 times and had verbal understanding by 3 rns who did independant checks and own math. Pts given 6mg bolus=10% and 56mg drip started Corrected statement was not started at 61mg. The wast was removed from the bottle and calculated accordingly. drip is running and gross neuor checks q15m started. At this time there is no signs or symptoms of hemmorhagic conversion. Pt unable to read words on puzzle or describe NIH pictures. Pt tearful but support provided.
[2019-11-14 17:11] LABS: BASOPHILS # (AUTO) 0.04 x10^3/uL (0-0.1); BASOPHILS % (AUTO) 0 % (0-1); EOSINOPHILS # (AUTO) 0.22 x10^3/uL (0-0.4); EOSINOPHILS % (AUTO) 2 % (1-7); LYMPHOCYTES # (AUTO) 1.66 x10^3/uL (1-3.4); LYMPHOCYTES % (AUTO) 17 % (22-44); MD NO; MEAN CORPUSCULAR HEMOGLOBIN 30.6 pg (27.0-34.8); MEAN CORPUSCULAR HGB CONC 33.3 g/dL (32.4-35.8); MEAN CORPUSCULAR VOLUME 91.8 fL (80-100); MEAN PLATELET VOLUME 8.9 fL (7.4-10.4); MONOCYTES # (AUTO) 0.48 x10^3/uL (0.2-0.8); MONOCYTES % (AUTO) 5 % (2-9); NEUTROPHILS % (AUTO) 76 % (42-75); PLATELET COUNT 251 x10^3/uL (130-400); RED BLOOD COUNT 4.27 x10^6/uL (3.82-5.3); RED CELL DISTRIBUTION WIDTH 15.3 % (9.6-15.2)
[2019-11-14 17:18] LABS: INTERNATIONAL NORMALIZED RATIO 0.99 (0.93-1.1); PROTHROMBIN TIME 10.2 Seconds (9.6-11.5)
[2019-11-14] MEDS ORDERED: HYDR-3240 PO (17:48)
[2019-11-14] MEDS ORDERED: PROMETHAZINE 25 MG/ML, 1ML IM PRN (18:00)
[2019-11-14] MEDS ORDERED: SENNA/DOCUSATE TABLET PO PRN (18:00)
[2019-11-14] MEDS ORDERED: ENALAPRILAT 1.25 MG/ML, 2ML IV PRN (18:00)
[2019-11-14] MEDS ORDERED: ONDANSETRON 2MG/ML, 2ML IVPush PRN (18:00)
[2019-11-14] MEDS ORDERED: ACETAMINOPHEN 325 MG TABLET PO PRN (18:00)
[2019-11-14] MEDS ORDERED: LABETALOL 5MG/ML, 20ML IV PRN (18:00)
[2019-11-14] MEDS ORDERED: POLYETHYLENE GLYCOL 17 GM PACKET PO PRN (18:00)
[2019-11-14] MEDS ORDERED: DOCUSATE 100 MG CAPSULE PO PRN (18:00)
--- NOTE | 2019-11-14 18:19 | NUR ---
PT TO MRI THEN ROOM 551
[2019-11-14] MEDS ORDERED: GADOTERATE 7.5 MMOL/15 ML SYR ONE (18:35)
[2019-11-14] MEDS: ATORVASTATIN 80 MG TABLET PO SCH (22:14)
[2019-11-14 22:16] VITALS: BP 139/62
[2019-11-14] MEDS ORDERED: TIOT4MIS3 PO (23:39)
[2019-11-14] MEDS ORDERED: LOSA25TA25 PO (23:39)
[2019-11-14] MEDS ORDERED: LORA-445 PO (23:39)
[2019-11-15 04:00] VITALS: BP 106/50
[2019-11-15 05:12] LABS: BASOPHILS # (AUTO) 0.05 x10^3/uL (0-0.1); BASOPHILS % (AUTO) 1 % (0-1); EOSINOPHILS # (AUTO) 0.38 x10^3/uL (0-0.4); EOSINOPHILS % (AUTO) 4 % (1-7); LYMPHOCYTES # (AUTO) 1.64 x10^3/uL (1-3.4); LYMPHOCYTES % (AUTO) 16 % (22-44); MD NO; MEAN CORPUSCULAR HEMOGLOBIN 30.5 pg (27.0-34.8); MEAN CORPUSCULAR HGB CONC 33.2 g/dL (32.4-35.8); MEAN PLATELET VOLUME 9.3 fL (7.4-10.4); MONOCYTES # (AUTO) 0.78 x10^3/uL (0.2-0.8); MONOCYTES % (AUTO) 8 % (2-9); NEUTROPHILS # (AUTO) 7.18 x10^3/uL (1.8-6.8); NEUTROPHILS % (AUTO) 72 % (42-75); PLATELET COUNT 218 x10^3/uL (130-400); RED BLOOD COUNT 4.06 x10^6/uL (3.82-5.3); RED CELL DISTRIBUTION WIDTH 15.1 % (9.6-15.2)
[2019-11-15 05:23] LABS: CHLORIDE 100 mmol/L (98-107)
[2019-11-15 05:33] LABS: ALANINE AMINOTRANSFERASE 15 U/L (12-78); ALBUMIN 3.2 g/dL (3.4-5.0); ALKALINE PHOSPHATASE 60 U/L (45-117); ANION GAP 7 mmol/L (5-15); BILIRUBIN,TOTAL 0.9 mg/dL (0.2-1.0); CALCIUM 8.4 mg/dL (8.5-10.1); CHOL/HDL RATIO 2.3; CHOLESTEROL, TOTAL 178 mg/dL (140-239); CREATININE 1.69 mg/dL (0.55-1.02); HDL CHOL % 43 % (28-40); HDL CHOLESTEROL (DIRECT) 77 mg/dL (40-60); LDL CHOLESTEROL,CALCULATED 74 mg/dL (54-169); TRIGLYCERIDES 133 mg/dL (50-200); VLDL CHOLESTEROL 27 mg/dL (0-25)
[2019-11-15] MEDS ORDERED: MAGNESIUM SULFATE PMX 2GM/50ML 50 ML IV ONE (08:00)
[2019-11-15] MEDS: POTASSIUM CHLORIDE 20 MEQ TAB.ER.PRT PO SCH ×3 (08:58→17:42)
[2019-11-15] MEDS: ALBUTEROL-IPRATROPIUM MDI INH INH SCH ×2 (17:41→20:46)
[2019-11-15] MEDS: ATORVASTATIN 80 MG TABLET PO SCH (20:46)
[2019-11-16 04:00] VITALS: BP 118/57
[2019-11-16 05:15] LABS: ANION GAP 7 mmol/L (5-15); CALCIUM 8.7 mg/dL (8.5-10.1); CHLORIDE 103 mmol/L (98-107); CREATININE 1.45 mg/dL (0.55-1.02)
[2019-11-16] MEDS: ALBUTEROL-IPRATROPIUM MDI INH INH SCH ×2 (06:02→10:22)
[2019-11-16 06:35] VITALS: BP 109/64
[2019-11-16] MEDS: POTASSIUM CHLORIDE 20 MEQ TAB.ER.PRT PO SCH (10:22)
[2019-11-16 12:32] VITALS: BP 123/76
[2019-11-16] MEDS ORDERED: ASPI81TA45 PO (14:33)
[2019-11-16] MEDS ORDERED: ATOR-2 PO (14:33)
[2019-11-17] MEDS ORDERED: ASPIRIN 81 MG TABLET EC PO SCH (06:00)
== END 2019-11-16 16:42 | disposition home health service (06) | DRG 62 ==
LOC: ED 17:08 → SUATTDRO 17:27 → EDIP 18:31 → CCU 19:00 → 5SO 11-16 05:28
PROVIDERS: ADMIT Internal Medicine; ATTEND Hospitalist
DX: I63.9 Cerebral infarction, unspecified (principal); D68.69 Other thrombophilia; I50.32 Chronic diastolic (congestive) heart failure; J96.10 Chronic respiratory failure, unspecified whether with hypoxia or hypercapnia; R47.01 Aphasia; E78.5 Hyperlipidemia, unspecified; F41.1 Generalized anxiety disorder; I11.0 Hypertensive heart disease with heart failure; I25.10 Atherosclerotic heart disease of native coronary artery without angina pectoris; I25.2 Old myocardial infarction; I48.0 Paroxysmal atrial fibrillation; I70.201 Unspecified atherosclerosis of native arteries of extremities, right leg; J44.9 Chronic obstructive pulmonary disease, unspecified; Z79.890 Hormone replacement therapy; R29.705 NIHSS score 5; Z87.891 Personal history of nicotine dependence; Z90.710 Acquired absence of both cervix and uterus; Z99.81 Dependence on supplemental oxygen
CPT/HCPCS: 36415; 37195; 70450; 70496; 70498; 70553; 80047; 80048; 80053; 80061; 83735; 85025; 85610; 85730; 87081; 93005; 93306; G0378; J2997; Q9967; 92523-GN; A9575; J3475

== ENCOUNTER 2019-12-22 11:24 | Day surgery (SDC) | payer MEDICARE ==
[~2019-12-22] VITALS: Ht 162.6 cm; Wt 62.0 kg
[~2019-12-22 11:24] MED LIST changes: +ATOR-2 PO; +LOSA25TA25 PO; +TIOT4MIS3 PO
[2019-12-22] MEDS ORDERED: LIDOCAINE 2%, 20ML ONE (12:03)
== END 2019-12-22 12:46 | disposition home or self-care (01) ==
LOC: CACL 11:24
PROVIDERS: ATTEND Internal Medicine Cardiovascular Disease
DX: I48.0 Paroxysmal atrial fibrillation (principal); E78.2 Mixed hyperlipidemia; J44.9 Chronic obstructive pulmonary disease, unspecified; I63.9 Cerebral infarction, unspecified; Z79.82 Long term (current) use of aspirin; Z79.899 Other long term (current) drug therapy; Z99.81 Dependence on supplemental oxygen
CPT/HCPCS: 33285; C1764